=== PATIENT | female | born 1950 | race Caucasian/White ===

== ENCOUNTER 2021-07-24 16:42 | Emergency (ER) | payer MEDICARE, BC, SELFPAY ==
[2021-07-24 16:55] VITALS: BP 155/97; PULSE 88; RESP 16; TEMP 36.9; O2SAT 99
--- NOTE | 2021-07-24 17:09 | ED.ABDPAIN ---
HPI - Abdominal Pain General Chief Complaint: Abdominal Pain Stated Complaint: abd pain Time Seen by Provider: 07/24/21 17:09 Source: patient, RN notes reviewed and old records reviewed Mode of arrival: ambulatory Limitations: no limitations History of Present Illness HPI narrative: 70-year-old female presents to the [facility] with complaints of left lower quadrant pain for the last couple hours that is been waxing and waning. Has not taken anything for pain. Patient reports that she was traveling from [place] to [place] and while sitting in the car had some increased pain. Also reports when pain is really bad has had some nausea and vomiting. Patient has a history of high cholesterol and kidney stones. Patient denies any fevers. No chest pain or shortness of breath. Walks with a normal gait. No back pain. Requesting pain medication MD elicited complaint: abdominal pain Related Data Home Medications Medication Instructions Recorded Confirmed lovastatin 10 mg PO DAILY 07/24/21 07/24/21 Allergies Allergy/AdvReac Type Severity Reaction Status Date / Time morphine AdvReac Intermediate Vomiting Verified 07/24/21 17:15 Review of Systems Review of Systems: All systems reviewed & are unremarkable except as noted in HPI and below Constitutional: Constitutional: Reports no additional constitutional complaints, Denies body ache(s), Denies chills and Denies fever(s) Eyes: Eyes: Reports no additional eye complaints ENT: Reports system reviewed and no additional complaints, except as documented Cardiovascular: Cardiovascular: Reports no additional cardiovascular complaints, Denies chest pain and Denies dyspnea Respiratory: Respiratory: Reports no additional respiratory complaints, Denies cough and Denies dyspnea Gastrointestinal: Gastrointestinal: Reports as per HPI, Reports abdominal pain (Left lower quadrant), Denies diarrhea, Reports nausea and Reports vomiting Genitourinary: Genitourinary: Reports no additional female genitourinary complaints Musculoskeletal: Musculoskeletal: Reports no additional musculoskeletal complaints Integumentary/Breasts: Skin/Breast: Reports system reviewed and no additional complaints, except as docu Neurologic: Reports system reviewed and no additional complaints, except as documented Psychiatric: Psychiatric: Reports no additional psychiatric complaints Allergic/Immunologic: Allergic/Immunologic: Reports no additional allergic/immunologic complaints PMFSH Past Medical History Medical History High cholesterol Kidney stones Surgical History Surgical History (Updated 07/24/21 @ 17:59 by Imani Jimenez APRN) No pertinent past surgical history Social History Social History (Updated 07/24/21 @ 18:00 by Imani Jimenez APRN) Gender identity (if verbalized by the patient): Female Comments At the time of my signature, I reviewed and agree with the nursing past medical, surgical, social, and family history. There is no relevant family history pertinent to the patient complaint. Exam Const: General: cooperative, healthy appearing, comfortable, no acute distress, well developed and alert Nutritional Appearance: well nourished Orientation/consciousness: patient oriented x3 Limitations: no limitations HENMT: Head: normal to inspection Ears: external ears normal Eyes: Pupils: Equal, round and reactive pupils present Neck: Neck: normal visual inspection, no lymphadenopathy and no meningeal signs Chest: Chest palpation & inspection: normal inspection of the chest Resp: Effort & Inspection: normal respiratory effort, able to speak in complete sentences and no use of accessory muscles Auscultation: clear to auscultation bilaterally Cardio: Rate: regular rate Rhythm: regular rhythm GI: GI Palp: Yes Soft to palpation, No Tenderness to palpation present (GI), No Guarding due to palpation present (GI) and No Rebound tendern
[2021-07-24] MEDS: ACETAMINOPHEN 325 MG TABLET 650 MG PO (17:34)
== END 2021-07-24 17:40 | disposition left against medical advice (07) ==
PROVIDERS: Emergency Provider Nurse Practitioner
DX: R10.32 Left lower quadrant pain (principal); E78.00 Pure hypercholesterolemia, unspecified
CPT/HCPCS: 81003; 99203; A9270; G0463